=== PATIENT | female | born 1990 | race African-American/Black ===

== ENCOUNTER 2020-02-20 09:43 | Outpatient (CLI) | payer OTHER, SELFPAY ==
--- NOTE | ~2020-02-20 | US_ITS ---
EXAMINATION: US OB /maternal detail DATE: 02/20/2020 10:39 INDICATION: Second trimester anatomic survey TECHNIQUE: Real-time ultrasound of the pelvis was performed. COMPARISON: None. FINDINGS: There is a single living fetus in vertex presentation. The placenta is posterior and 4.2 cm from the internal cervical os. heart rate is 147 beats per minute (bpm). cardiac activity and fet al movement are noted. The amniotic fluid index is 11.0 which is normal. There is suboptimal evaluation of the spine due to positioning. The following anatomy was identified as normal: 4 chamber heart 3 vessel cord cord insertion kidneys urinary bladder stomach diaphragm ventricles cisterna magna cerebellum The following biometric data were obtained: Biparietal diameter (BPD): 4.81 cm; head circumference (HC): 7.8 cm; abdominal circumference (AC): 16 .6 cm; femur length (FL): 3.2 cm. These measurements are concordant. Estimated weight is 387 g +/- 58 g, which correlates with the <3rd percentile when 06/16/2020 is used as estimated date of delivery. As single measurements, these parameters are each equal to the following estimated gestational ages w ith ranges of +/- 2 standard deviations: BPD: 20 weeks 4 days +/- 1 weeks 5 days. HC: 20 weeks 2 days +/- 1 weeks 3 days. AC: 21 weeks 5 days +/- 2 weeks 0 days. FL: 20 weeks 2 days +/- 1 weeks 6 days. estimated gestational age based solely on measurements from this exam is 20 weeks 5 days +/- 1 weeks 3 days. IMPRESSION: 1. Single living fetus in vertex presentation. 2. Estimated weight is 387 g +/- 58 g, which correlates with the <3rd percentile when 06/16/2020 is used as estimated date of delivery. 3. Normal amniotic fluid index. 4. Suboptimal evaluation of the spine due to positioning. Reviewed, dictated and finalized at location A. [facility] UPHOLSTERY PARTS IMPRESSION: 1. Single living fetus in vertex presentation. 2. Estimated weight is 387 g +/- 58 g, which correlates with the <3rd per centile when 06/16/2020 is used as estimated date of delivery. 3. Normal amniotic fluid index. 4. Suboptimal evaluation of the spine due to positioning.
== END 2020-02-20 09:44 | disposition home or self-care (01) ==
PROVIDERS: Visit Provider Obstetrics & Gynecology
DX: Z34.92 Encounter for supervision of normal pregnancy, unspecified, second trimester (principal); Z3A.20 20 weeks gestation of pregnancy
CPT/HCPCS: 76805

== ENCOUNTER 2020-04-14 10:46 | Outpatient (CLI) | payer OTHER, SELFPAY ==
--- NOTE | ~2020-04-14 | US_ITS ---
EXAMINATION: US OB follow up EXAM DATE: 04/14/2020 11:22 INDICATION: Encounter for supervision of normal . 3rd trimester. TECHNIQUE: Pelvic obstetrical transabdominal sonogram was performed by a technologist. There are mu ltiple grayscale and Doppler images available for interpretation. Comparison is made to prior examina tion from 02/20/2020. FINDINGS: There is a single fetus identified in vertex presentation with a heart rate of 131 beats pe r minute. The placenta is located in the posterior position. There is no sonographic evidence of ret roplacental hemorrhage identified. The amniotic fluid index is 16.8 centimeters, which is normal. BIOMETRIC DATA: Biparietal diameter (BPD): 7.5cm ----------------> 30 weeks 1 day. Head circumference (HC): 26.0 cm ----------------> 28 weeks 2 days. Abdominal circumference (AC): 24.3 cm ----------> 28 weeks 4 days. Femur length (FL): 5.1 cm --------------------------> 27 weeks 2 days. These measurements are discordant, low FL/BPD ratio. HC/AC ratio is 1.07 (The 5th -- 95th percentile range is 1.00-1.21. Estimated weight is 1192 g +/- 179 g. This is the less than 3rd percentile when the currently reported clinical gestation age 31 weeks 0 days, clinical estimated date of delivery (PAT-OPE) 021 is used. estimated gestational age based on measurements from this exam is 28 weeks 4 days, with an estimated date of delivery (PAT-AUA) 07/03. IMPRESSION: 1. Single fetus in vertex presentation with heart rate 131 beats per minute. 2. Low weight of 1192 grams, less than 3rd percentile using the currently reported clinical ge station age of 31 weeks, PAT(OPE) 06/16. Low FL/BPD ratio. Reviewed, dictated and finalized at location A. EDWARDS CONSULTANT IMPRESSION: 1. Single fetus in vertex presentation with heart rate 131 beats per minute. 2. Low weight of 1192 grams, less than 3rd percentile using the currentl y reported clinical gestation age of 31 weeks, PAT(OPE) 3. Low FL/BPD ratio.
== END 2020-04-14 10:47 | disposition home or self-care (01) ==
PROVIDERS: PCP Physician Assistant; Visit Provider Physician Assistant
DX: Z34.90 Encounter for supervision of normal pregnancy, unspecified, unspecified trimester (principal); Z3A.00 Weeks of gestation of pregnancy not specified
CPT/HCPCS: 76816

== ENCOUNTER 2020-07-02 08:27 | Inpatient (IN) | payer OTHER, SELFPAY ==
[2020-07-02] VITALS (47 sets, daily range): BP systolic 98–130; BP diastolic 59–86; PULSE 66–125; RESP 12–18; TEMP 36.1–36.7; O2SAT 96–100; BMI 34.7
--- NOTE | 2020-07-02 07:09 | WPDHPUPDATE1 ---
History and Physical Update Update Date/Time: 07/02/20 07:09 History and Physical has been reviewed, including an updated exam of the patient. There are NO changes in the patient's condition. Risks, benefits, and alternatives have been discussed and questions answered. Patient agrees to proceed with procedure. 29 y/o F with h/o BV, candidiasis, TV, GBS, heterozygous MTHFR, HSV, deliveries who presents for 39w5d.repeat csection 07/02/20 under spinal anesthesia I explained her condition procedure and risks involved including risk of bleeding infection injury to bladder bowel baby pelvic vessels DVT pneumonia wound infections UTI and the risk of anesthesia she understands all this accepts and agrees to proceed
--- NOTE | 2020-07-02 07:21 | WPDOBADMIT ---
Obstetrics - Admit Note Admission Note: record reviewed. No pertinent additions to the history and/or any subsequent changes in the physical findings that are not consistent with the expected course of the were found. Additions to the history and/or subsequent changes in the physical findings follow. None. 30y/o F with h/o BV, candidiasis, TV, GBS, heterozygous MTHFR, HSV, deliveries who presents at 39w5d. she is undergoing a repeat low-transverse under spinal anesthesia on 07/02/20 I explained her condition procedure and risks involved she understands accepts and agrees to proceed. pump breast milk and use bottle. not sure on feeding, Dr Isabella Barbour for climbing guide ,no BC, boy name is Marbin Pérez. circumcision desired. repeat .
--- NOTE | 2020-07-02 07:27 | PM.IMHP ---
H&P: HPI History of Present Illness Date/Time: 07/02/20 07:27 30y/o F with h/o BV, candidiasis, TV, GBS, heterozygous MTHFR, HSV, deliveries who presents at 39w5d for.repeat csection 07/02/20 Chief Complaint: Term Repeat Review of Systems Review of Systems: All systems reviewed & are unremarkable except as noted in HPI and below Constitutional: Constitutional: Reports no additional constitutional complaints Eyes: Eyes: Reports no additional eye complaints ENT: Reports system reviewed and no additional complaints, except as documented Cardiovascular: Cardiovascular: Reports no additional cardiovascular complaints Respiratory: Respiratory: Reports no additional respiratory complaints Gastrointestinal: Gastrointestinal: Reports no additional gastrointestinal complaints Genitourinary: Genitourinary: Reports no additional female genitourinary complaints Musculoskeletal: Musculoskeletal: Reports no additional musculoskeletal complaints Integumentary/Breasts: Skin/Breast: Reports system reviewed and no additional complaints, except as docu Neurologic: Reports system reviewed and no additional complaints, except as documented Psychiatric: Psychiatric: Reports no additional psychiatric complaints Endocrine: Endocrine: Reports no additional endocrine complaints Hematologic/Lymphatic: Hematologic/Lymphatic: Reports no additional hematologic/lymphatic complaints Allergic/Immunologic: Allergic/Immunologic: Reports no additional allergic/immunologic complaints PMFSH Past Medical History Medical History (Updated 07/02/20 @ 07:46 by Boo Mondragon MD) BV (bacterial vaginosis) Candidiasis of vagina GBS (group B Streptococcus carrier), +RV culture, currently History of one miscarriage HSV (herpes simplex virus) infection Methylenetetrahydrofolate reductase (MTHFR) deficiency Term Trichomonas vaginalis (TV) infection UTI (urinary tract infection) Surgical History Surgical History (Updated 07/02/20 @ 07:37 by Boo Mondragon MD) Delivery by section 09/23/200914110 hrs.6 lbs.4 oz.FPrimary [facility] Family [facility] Family History (Updated 07/02/20 @ 07:40 by Boo Mondragon MD) Legal Guardian Breast cancer Ovarian cancer Social History Social History (Updated 07/02/20 @ 07:41 by Boo Mondragon MD) Smoking status: Never smoker Alcohol intake: never Substance use: never Gender identity (if verbalized by the patient): Female Sexual Orientation (if Verbalized by the Patient): Straight or Heterosexual Spiritual care concerns: No Agree to blood products: Yes Meds Home Medications and Allergies Home Medications Medication Instructions Recorded Confirmed Type PNV cmb#95-ferrous fumarate-FA 1 tablet PO DAILY 06/12/20 06/12/20 History [] aspirin 81 mg PO DAILY 06/12/20 06/12/20 History calcium carbonate [Oysco-500] 500 mg PO DAILY 06/12/20 06/12/20 History cyanocobalamin (vitamin B-12) See Rx Instructions .ROUTE .COMPLEX 06/12/20 06/12/20 History folic acid 1 mg PO DAILY 06/12/20 06/12/20 History progesterone micronized 200 mg PO BID 06/12/20 06/12/20 History valacyclovir [Valtrex] 800 mg PO DAILY 06/12/20 06/12/20 History Allergies Allergy/AdvReac Type Severity Reaction Status Date / Time No Known Allergies Allergy Verified 06/12/20 12:36 Exam Const: General: cooperative, healthy appearing, comfortable, no acute distress, well developed, alert, awake and Physically active Nutritional Appearance: average body habitus and well nourished Orientation/consciousness: patient oriented x3 Limitations: no limitations HENMT: Head: normal to inspection Eyes: General: appearance normal, both eyes and all related structures Neck: Neck: normal visual inspection and full ROM Chest: Chest palpation & inspection: normal inspection of the chest
--- NOTE | 2020-07-02 08:51 | LDADM ---
This patient, Augusto Pérez, was admitted to Labor/Delivery/Recovery 120 on 07/02/20 at 08:27. Plans for labor, pain management and were discussed with patient. Patient/family oriented to hospital policies and general routines including ID bracelet, bed and alarms, visiting hours, pain management, procedures, bathroom and other care routines, personal items, smoking policy, room service/diet and guest tray routines, infant security routines, call light,and visiting hours. Patient/Family are encouraged to report perceived risks to care and to ask questions if they do not understand what they are told or what they should do. See OBIX for further documentation.
[2020-07-02 09:25] LABS: Basophils Percent Auto 0.1 % (0.2-1.2); Eosinophils Percent Auto 0.6 % (0-4.4); Hematocrit 36.5 % (37.0-47.0); Hemoglobin 11.8 g/dL (12.0-15.0); Immature Granulocyte Absolute 0.02 K/mm3 (0.00-0.031); Immature Granulocyte Percent A 0.3 % (0-0.5); Lymphocytes Percent Auto 29.6 % (18.3-44.2); Mean Corpuscular HGB Conc 32.3 g/dl (32-36); Mean Corpuscular Hemoglobin 28.6 pg (26-34); Mean Corpuscular Volume 88.4 fl (80-100); Mean Platelet Volume 10.9 fl (7.4-10.4); Monocytes Absolute Auto 0.7 K/mm3 (0.1-0.6); Monocytes Percent Auto 10.1 % (2.6-8.5); Neutrophils Percent Auto 59.3 % (45.5-73.1); Platelet Count Result 244 k/mm3 (150-375); Red Blood Count 4.13 M/mm3 (4.2-5.4); Red Cell Distribution Width 13.1 % (11.5-14.5); White Blood Count 6.8 K/mm3 (4.5-10.0)
[2020-07-02] MEDS: LACTATED RINGERS 1,000 ML 125 ML IV CONT (09:25)
[2020-07-02] MEDS: ceFAZolin 2 GM/D5W 50 ML 2 GM/50 ML BAG IVPB (10:01)
[2020-07-02 10:15] LABS: HIV 1/2 Ab P24 Ag Result Negative (Negative)
--- NOTE | 2020-07-02 11:09 | P.PCNOB_ITS ---
OB - Delivery Note Procedure Procedure: Procedures Operation Date: 07/02/20 10:30 Repeat low-transverse section with delivery of viable male and placenta Intrapartal events: None Induction method: none Delivery monitor: external FHT and external uterine Route of delivery: ( repeat low-transverse) Episiotomy description: None Laceration Description: None Specimen: Yes ( placenta cord, cord gases, cord blood) Quantitative Blood Loss (ml): 200 Anesthesia type: Spinal ( Duramorph) Disposition: floor Complications: none [place] Baby Date of : 07/02/20 Time of : 10:32 Weeks of gestation at delivery: 39 Infant gender: Male (Yessenia) Weight (pounds): 7 Weight (ounces): 8 presentation: vertex position: Left Occiput Transverse Placenta delivery description: Manual Removal and Normal Configuration cord vessel description: 3 Vessels and Nuchal Cord score one minute: 9 score five minutes: 9 Narrative: normal transition normal exam taken to nursery in stable condition
--- NOTE | 2020-07-02 11:13 | PM.PROC ---
Procedure Note - Detailed Date of procedure: 07/02/20 Pre-op diagnosis: section term , prior desires repeat section, MTHFR, HSV, GBS Post-op diagnosis: same ( delivered viable male infant and placenta) Procedure performed: repeat low-transverse section with delivery of viable male and placenta Description of procedure: informed consent was obtained, the patient was taken to the operating room and placed on the operating table in upright position. Spinal anesthetic with Duramorph was administered the patient was then placed in the supine position and a Daugherty catheter was then inserted and the bladder and a abdominal prep was then performed. A time-out was performed and the abdomen was tested for adequate pain relief and was confirmed. Elliptical incision was made around the old scar and the old scar was excised using electrocautery for hemostasis. The fascia was entered with electrocautery and undermined inferiorly and then superiorly as well as laterally with electrocautery and the rectus muscles were then in the midline and the peritoneum was entered without difficulty and occult uterine dehiscence was identified and the membranes were easily ruptured with small pickups and clear fluid was obtained. The uterine incision was then extended bilaterally digitally. The amniotic fluid was clear and the vertex was then delivered via the abdominal incision with a nuchal cord x1 reduced upon delivery stimulation of the baby allowed for spontaneous respirations and cry and the cord was clamped and cut and the was handed to the nursery nurse in attendance. Normal transition with scores of 9 and 9 given baby born at 10:32 a.m. the weight 7 lb 8 oz taken to the nursery in stable condition. Cord gases were obtained and cord blood. The placenta was then delivered manually intact with a three-vessel cord and 10 units of Pitocin was given into the myometrium and it Pitocin was also given intravenously and the uterus contracted well with very minimal blood loss. Blood clots membranes removed from the intrauterine cavity with lap sponge. The uterus was externalized and then repaired the uterine incision with special emphasis on the dehisced area of the lower uterine segment with 0 Vicryl in a running interlocking fashion the 2nd being an imbricating and reinforcement stitch. Hemostasis was excellent blood clots removed the cul-de-sac with irrigation. The uterus was returned to the peritoneal cavity the sponge needle and instrument counts were correct the anterior peritoneum and rectus muscles were then reapproximated with 0 Vicryl suture in a running fashion the fascia was closed with 2. Quill S RS system bilaterally. Interrupted 2 0 plain suture was then used to reapproximate Vin's fascia. And the skin was closed with absorbable scotty INSORB. Dermaflex was placed on the skin of the scar and Mepilex dressing was placed over the incision. Patient was then taken to the recovery room stable condition the baby was taken to the nursery in stable condition. Implants: none Anesthesia: spinal ( Duramorph-- Angela Reynolds) Surgeon: Boo Mondragon MD Character Artist: surgical services coordinator x2 Estimated blood loss (mL): 200 IV fluids (mL): 900 Urine output (mL): 150 Drains: No Packing: No Pathology: yes ( cord gases, cord blood, placenta) Complications: None Condition: stable Disposition: floor Findings: normal uterus tubes and ovaries Occult uterine dehiscence with bulging bag of water at lower uterine segment Viable male infant Yessenia Apgars 9 and 9 weight 7 lb 8 oz born at 10:32 a.m. Spontaneous respirations and cry no observed abnormalities on the exam taken to the nursery in stable condition with normal transition Placenta delivered intact with a three-vessel cord Upper abdomen clean Incision uterus reinforced where occult uterine dehiscence Counts correct Compli
--- NOTE | 2020-07-02 11:26 | PM.OBDSVD ---
DS: Admitting Diagnosis Admitting Diagnosis Admitting Diagnosis: Term Previous desires repeat section MTHFR HSV GBS DS: Discharge Diagnosis Discharge Diagnosis (1) Term delivered: Code(s): O80 - Encounter for full-term uncomplicated delivery Status: Acute (2) Delivery by section: Status: Acute (3) GBS (group B Streptococcus carrier), +RV culture, currently : Code(s): O99.820 - Streptococcus B carrier state complicating Status: Acute (4) Methylenetetrahydrofolate reductase (MTHFR) deficiency: Code(s): E72.12 - Methylenetetrahydrofolate reductase deficiency Status: Acute OB - DS: Summary Hospital Course Time spent discussing smoking cessation with patient: 3 to 10 minutes OB Procedures : Ultrasound OB Procedures Intrapartum: ( repeat) low cervical, transverse and GBS prophylaxis OB Procedures: : Antibiotics Peripartum Data Infant Delivery Method: Section ( repeat low-transverse) Laceration Description: None Episiotomy description: None Procedures: Procedures Operation Date: 07/02/20 10:30 repeat low-transverse section with delivery of viable male and placenta complications: none 1: Gender: Male (Yessenia) Disposition of : home Status at Discharge Functional status at discharge: independent ambulation Overall status at discharge: patient is back to baseline Time Spent with Patient Time attestation: Total time spent providing and/or coordinating discharge services: Time spent: Less than 30 minutes Exam Const: General: cooperative, healthy appearing, comfortable, no acute distress, well developed, alert, awake and Physically active Nutritional Appearance: average body habitus and well nourished Orientation/consciousness: patient oriented x3 Limitations: no limitations HENMT: Head: normal to inspection Eyes: General: appearance normal, both eyes and all related structures Neck: Neck: normal visual inspection and full ROM Chest: Chest palpation & inspection: normal inspection of the chest Breast/axilla inspection: normal inspection of the breasts Resp: Effort & Inspection: normal respiratory effort Auscultation: clear to auscultation bilaterally Cardio: Rate: regular rate Rhythm: regular rhythm Heart sounds: S1 normal heart sound present and S2 normal heart sound present GI: Inspection: normal to inspection and incision ( dressing dry and intact) GI Palp: Yes Soft to palpation Percussion: Yes normal to percussion Auscultation: normal bowel sounds : External Female Exam: normal external appearance Back/Spine/Pelvis: Back: no CVA tenderness Skin: General skin exam: normal color Neuro: General: patient oriented x3, gait normal, tone normal, moves all extremities, Normal light touch and pain sensation, no meningeal signs, no focal motor deficits and CN's II-XI intact bilaterally Extrem: General: normal to inspection, full ROM, no calf tenderness and edema Psych: Appearance: grossly normal Mental Status: mental status grossly normal Speech and movement: Normal speech and movement present Affect: normal affect Attitude: cooperative Thought process: Normal thought process present Thought content: Yes Normal thought content present Insight: Good insight present (Psych) Judgement: Good judgement present (Psych) DS: Data Data Completed and Pending Labs on day of discharge: Labs from last 24 hours 07/02/20 07/02/20 07/02/20 09:12 09:12 09:12 WBC RBC Hgb Hct MCV MCH MCHC RDW Plt Count MPV Immature Gran % (Auto) Neut % (Auto) Lymph % (Auto) [place] % (Auto) Eos % (Auto) Baso % (Auto) Lymph # (Auto) [place] # (Auto) Eos # (Auto) Baso # (Auto) Abs Immat Gran (auto) Absolute Neuts (auto) Absolute Nucleated RBC Nucleat
[2020-07-02] MEDS: OXYTOCIN 30 UNITS/NS 500 ML 30 UNITS/500 ML BAG 125 UNITS IV CONT (11:54)
[2020-07-02] MEDS: diphenhydrAMINE HCl INJ 50 MG/ML VIAL 25 MG IV PUSH (11:56)
[2020-07-02] MEDS: KETOROLAC 30 MG/ML VIAL (*BKC) IV PUSH ×2 (11:59→17:43)
[2020-07-02 12:01] LABS: Rapid Plasma Reagin Non-Reactive (NonReactive)
--- NOTE | 2020-07-02 13:25 | PC.NURSE ---
Addendum entered by Alice Frey RN 07/02/20 15:15: Patient transferred to post room #278 via stretcher. Support person present. Oriented to unit, room, information board, rooming in, admission packet and security measures. Patient verbalizes understanding. Original Note: This patient, Augusto Pérez, was received from [facility] on 07/02/20 at 1325. Patient/family oriented to unit policies and routines
--- NOTE | 2020-07-02 15:30 | PC.NURSE ---
Consult with pt., mother states she wishes to pump and bottle feed. Mother states she will put infant to breast at times, but will supplement after. Breast pump provided due to mother's wishes. Instructions given on breast pump care and usage, pumping schedule, nipple care, and collection and storage of breast milk. Encouraged [id number], breast massage and manual expression to stimulate supply. Assessed patient for correct flange size 27mm, placement and draw. Patient verbalizes and demonstrates understanding of instructions.
[2020-07-02] MEDS: DEXTROSE 5%/0.45% SOD CHL 1,000 ML 125 ML IV CONT (16:28)
[2020-07-02] MEDS: LORATADINE 10 MG TABLET (16:36)
[2020-07-02] MEDS: diphenhydrAMINE HCl INJ 50 MG/ML VIAL 12.5 MG IV PUSH (22:45)
[2020-07-03] MEDS: IBUPROFEN 600 MG TABLET PO ×3 (04:15→22:00)
[2020-07-03] MEDS: HYDROcodone/acetaminophen (*CRX) 10-325 MG TABLET 1 TAB PO (04:20)
[2020-07-03 04:43] VITALS: BP 115/73; PULSE 93; PULSE 96; RESP 16; RESP 18; TEMP 36.5; O2SAT 100
[2020-07-03 06:38] LABS: Basophils Percent Auto 0.2 % (0.2-1.2); Eosinophils Percent Auto 0.2 % (0-4.4); Hematocrit 32.9 % (37.0-47.0); Hemoglobin 10.6 g/dL (12.0-15.0); Immature Granulocyte Absolute 0.04 K/mm3 (0.00-0.031); Immature Granulocyte Percent A 0.3 % (0-0.5); Lymphocytes Absolute Auto 1.43 K/mm3 (0.9-3.2); Lymphocytes Percent Auto 11.2 % (18.3-44.2); Mean Corpuscular HGB Conc 32.2 g/dl (32-36); Mean Corpuscular Hemoglobin 28.3 pg (26-34); Mean Corpuscular Volume 87.7 fl (80-100); Mean Platelet Volume 10.8 fl (7.4-10.4); Monocytes Percent Auto 7.9 % (2.6-8.5); Neutrophils Absolute Auto 10.2 K/mm3 (1.3-6.7); Neutrophils Percent Auto 80.2 % (45.5-73.1); Platelet Count Result 219 k/mm3 (150-375); Red Blood Count 3.75 M/mm3 (4.2-5.4); Red Cell Distribution Width 12.9 % (11.5-14.5); White Blood Count 12.8 K/mm3 (4.5-10.0)
[2020-07-03 08:00] VITALS: BP 122/69; PULSE 81; RESP 18; TEMP 36.6
--- NOTE | 2020-07-03 08:21 | WPDANLDPN2 ---
Anes-Prog Note L&D Date/Time: 07/03/20 08:21 Comfortable throughout: section Neuraxial method: spinal Epidural/Spinal procedure site: clean & non-tender Neuro status: Neuro function grossly intact. Cardiovascular status: normal Respiratory status: normal Airway patency: baseline Mental status: baseline Post-Op hydration status: normal Vital Signs: Last Vital Signs Temp 36.5 C 07/03/20 04:43 Pulse 96 07/03/20 04:43 Resp 18 07/03/20 04:43 BP 115/73 07/03/20 04:43 Pulse Ox 100 07/03/20 04:43 Pain score (VAS): 0/10. Patient resting in bed at time of assessment, appears comfortable. Support person at bedside. Patient has complaint of mild itching, no intervention at time of assessment. Discussed PRN medications, available to patient if needed. I/O: Intake & Output 07/02/20 07/03/20 07/03/20 23:59 07:59 15:59 Intake Total 480 1200 Output Total 125 1800 Balance 355 -600 Post-procedural complaints: pruritis mild, no treatment Patient feedback: Patient satisfied with anesthetic care.
--- NOTE | 2020-07-03 08:22 | WPDANLDNPN2 ---
Anes-Prog Note L&D-Neuraxial Date/Time: 07/03/20 08:22 Neuraxial medications: intrathecal PF morphine Opiod-related complaints: pruritis mild, no treatment Patient feedback: Patient satisfied with post-operative pain management.
[2020-07-03] MEDS: CALCIUM CARBONATE (OSCAL) 500 MG TABLET PO (08:54)
[2020-07-03] MEDS: HYDROcodone/acetaminophen (*CRX) 5-325 MG TABLET 1 TAB PO ×4 (08:55→22:00)
[2020-07-03] MEDS: SIMETHICONE 80 MG TAB.CHEW PO ×3 (08:55→17:18)
[2020-07-03] MEDS: ASPIRIN 81 MG ENTERIC TABLET PO (08:55)
[2020-07-03] MEDS: FOLIC ACID 1 MG TABLET PO (08:56)
[2020-07-03] MEDS: valACYclovir HCL 500 MG TABLET 800 MG PO (08:56)
[2020-07-03] MEDS: DOCUSATE SODIUM 100 MG CAPSULE PO ×2 (08:56→17:18)
--- NOTE | 2020-07-03 11:15 | P.DS_ITS ---
DS: Admitting Diagnosis Admitting Diagnosis Admitting Diagnosis: OB - DS: Summary OB Procedures : None OB Procedures Intrapartum: OB Procedures: : None Peripartum Data Procedures: Procedures Operation Date: 07/02/20 10:30 Actual Procedures Side Surgeon p Repeat Section Boo Mondragon MD Time Spent with Patient Time attestation: Total time spent providing and/or coordinating discharge services: DS: Data Data Completed and Pending Pending studies at discharge: Pending at discharge 07/02/20 12:21 Surgical [PTH] Routine Labs on day of discharge: Labs from last 24 hours 07/03/20 07/02/20 04:13 09:12 WBC 12.8 H RBC 3.75 L Hgb 10.6 L Hct 32.9 L MCV 87.7 MCH 28.3 MCHC 32.2 RDW 12.9 Plt Count 219 MPV 10.8 H Immature Gran % (Auto) 0.3 Neut % (Auto) 80.2 H Lymph % (Auto) 11.2 L [place] % (Auto) 7.9 Eos % (Auto) 0.2 Baso % (Auto) 0.2 Lymph # (Auto) 1.43 [place] # (Auto) 1.0 H Eos # (Auto) 0.0 Baso # (Auto) 0.0 Abs Immat Gran (auto) 0.04 H Absolute Neuts (auto) 10.2 H Absolute Nucleated RBC 0.0 Nucleated RBC % 0.0 RPR Non-reactive Discharge Plan Discharge Attending physician on discharge: Boo Mondragon Discharging Clinician: Boo Mondragon Anticipated Discharge Date/Time: 07/04/20 11:34 Patient Disposition: Home, Self-Care Activity: may shower, no straining, no driving and may drive after 2 weeks Diet: as tolerated and regular Wound Care Instructions: follow printed instructions Discharge Instructions: routine Patient Instructions: Antibiotic Form Stand Alone Forms: General Discharge Information Follow-up/Referrals: Boo Mondragon MD [Physician] - 3 Weeks Discharge Medications: New hydrocodone-acetaminophen 5-325 mg Tablet 1 tablet PO Q6H PRN (Reason: breakthrough pain) Qty: 28 RF: 0 polysaccharide iron complex 150 mg iron Capsule 150 mg PO BIDWM Qty: 120 RF: 3 ibuprofen 600 mg Tablet 600 mg PO Q6H Qty: 90 RF: 2 Continued valacyclovir [Valtrex] 500 mg Tablet 800 mg PO DAILY RF: 0 aspirin 81 mg Tablet,Delayed Release (Dr/Ec) 81 mg PO DAILY RF: 0 calcium carbonate [Oysco-500] 500 mg calcium (1,250 mg) Tablet 500 mg PO DAILY RF: 0 folic acid 1 mg Tablet 1 mg PO DAILY RF: 0 PNV cmb#95-ferrous fumarate-FA [] 28 mg iron- 800 mcg Tablet 1 tablet PO DAILY RF: 0 Discontinued progesterone micronized 200 mg Capsule 200 mg PO BID RF: 0 cyanocobalamin (vitamin B-12) 1,000 mcg/mL Syringe See Rx Instructions .ROUTE .COMPLEX RF: 0 Date of admission: 07/02/20 08:27 Primary Care Provider: PHYSICIAN,REFINED SYRUP OPERATOR Admitting Provider: Boo Mondragon Attending physician on admission: Boo Mondragon Condition: Stable
[2020-07-03 20:00] VITALS: BP 120/76; PULSE 77; RESP 18; TEMP 36.9; O2SAT 100
--- NOTE | 2020-07-03 20:23 | PC.NURSE ---
Pt & were escorted back to employee break room @ 191 due to code green, returned to room @ 1949 with no incident.
[2020-07-04] MEDS: IBUPROFEN 600 MG TABLET PO (05:15)
[2020-07-04] MEDS: SIMETHICONE 80 MG TAB.CHEW PO (05:15)
[2020-07-04] MEDS: HYDROcodone/acetaminophen (*CRX) 5-325 MG TABLET 1 TAB PO (05:15)
[2020-07-04] MEDS: DOCUSATE SODIUM 100 MG CAPSULE PO (07:29)
[2020-07-04] MEDS: ASPIRIN 81 MG ENTERIC TABLET PO (07:29)
[2020-07-04] MEDS: CALCIUM CARBONATE (OSCAL) 500 MG TABLET PO (07:29)
[2020-07-04] MEDS: valACYclovir HCL 500 MG TABLET 800 MG PO (07:30)
[2020-07-04] MEDS: FOLIC ACID 1 MG TABLET PO (07:31)
[2020-07-04] MEDS: TETANUS,DIPHTHERIA,AC PERTUSSIS ADULT (0.5 ML) BOOSTRIX IM (07:32)
[2020-07-04 07:35] VITALS: BP 116/70; PULSE 90; RESP 16; TEMP 36.9; O2SAT 96
[2020-07-05 12:52] VITALS: BP 141/68; PULSE 94; RESP 16; TEMP 36.8; O2SAT 96
--- NOTE | 2020-07-08 06:13 | PM.OBDSVD ---
DS: Admitting Diagnosis Admitting Diagnosis Admitting Diagnosis: OB - DS: Summary OB Procedures : None OB Procedures Intrapartum: OB Procedures: : None Peripartum Data Procedures: Procedures Operation Date: 07/02/20 10:30 Actual Procedures Side Surgeon p Repeat Section Boo Mondragon MD Time Spent with Patient Time attestation: Total time spent providing and/or coordinating discharge services: DS: Data Data Completed and Pending Pending studies at discharge: Pending at discharge 07/02/20 12:21 Surgical [PTH] Routine Discharge Plan Discharge Attending physician on discharge: Boo Mondragon Consulting providers: Suraj Shaffer Discharging Clinician: Boo Mondragon Anticipated Discharge Date/Time: 07/04/20 11:34 Patient Disposition: Home, Self-Care Activity: may shower, no straining, no driving and may drive after 2 weeks Diet: as tolerated and regular Wound Care Instructions: follow printed instructions Discharge Instructions: Education: Mom and Baby Guide Given to: Mother Follow-Up: Call your delivering provider's office for an appointment to be seen in: 3 weeks Mom and baby should come to the [facility] for the follow-up appointment. Appointment Date/Time: Sunday, July 05, 2020 at 12:00 pm Call [phone] if you are unable to keep your appointment time. BREAST CARE: * Wear a snug supportive bra. * For engorgement discomfort: Breast Feeding: * Apply warm moist washcloths * Express milk as needed to relieve engorgement * Wear loose clothing Bottle Feeding: * May apply ice packs * For sore nipples: * Identify correct latch-on * Apply warm moist washcloths before and after nursing * Air dry nipples after nursing * May apply Lansinoh cream to nipples ABDOMINAL INCISION: (if applicable) * Allow incision to air dry * Do NOT use lotions for powders on your incision * When showering, allow soap and water to run over the incision, but do not wash incision PERINEAL CARE: * Until bleeding stops, use your endy bottle after urinating * Change your pad frequently throughout the day * You may take sitz baths several times a day (fill your bathtub with warm water and soak for 20 minutes.) Do NOT bathe in the water * No tub baths until seen by your physician - You may shower ACTIVITY: * Rest as much as possible. * Do not exercise or lift anything heavier than your baby (such as laundry or other children.) * Avoid stairs or driving as much as possible. * Do not put anything into the vagina. No douching, tampons, or sexual activity until seen by physician. NOTIFY PHYSICIAN IF YOU HAVE ANY QUESTIONS OR IF ANY OF THE FOLLOWING SYMPTOMS OCCUR: * If your episiotomy or incision becomes red, swollen, or more painful than what you have experienced in the hospital. * If your vaginal bleeding becomes foul smelling. * If your vaginal bleeding becomes more heavy than a period or if your bleeding changes from pink to bright red. However, you may pass an occasional walnut-sized clot once or twice for the first week . * If you experience a sharp, shooting pain in you calves. * If you discover a hard, reddened area on your breast or if you experience flu-like symptoms. DIET: * Eat regular, well-balanced meals. * Drink plenty of fluids daily. If , drink to thirst. routine Follow-up/Referrals: Boo Mondraogn MD [Physician] - 3 Weeks Discharge Medications: New hydrocodone-acetaminophen 5-325 mg Tablet 1 tablet PO Q6H PRN (Reason: breakthrough pain) Qty: 28 RF: 0 ibuprofen 600 mg Tablet 600 mg PO Q6H Qty: 90 RF: 2 polysaccharide iron complex 150 mg iron Capsule 150 mg PO BIDWM Qty: 120 RF: 3 Continued valacyclovir [Valtrex] 500 mg Tablet 800 mg PO
== END 2020-07-04 12:40 | disposition home or self-care (01) | DRG 540 ==
LOC: ANHLDR 11:34 → ANHOB2 13:28
PROVIDERS: Admitting Provider Obstetrics & Gynecology; Visit Provider Obstetrics & Gynecology
PROC: 10D00Z1 Extraction of Products of Conception, Low, Open Approach (ICD-10-PCS; CPT 59514; principal; 2020-07-02 10:30)
DX: O34.211 Maternal care for low transverse scar from previous cesarean delivery (principal); Z37.0 Single live birth; Z3A.39 39 weeks gestation of pregnancy; O98.32 Other infections with a predominantly sexual mode of transmission complicating childbirth; B00.9 Herpesviral infection, unspecified; O99.284 Endocrine, nutritional and metabolic diseases complicating childbirth; E72.12 Methylenetetrahydrofolate reductase deficiency; O99.824 Streptococcus B carrier state complicating childbirth
CPT/HCPCS: 36415; 85025; 86592; 86703; 86850; 86900; 86901; 88307; 90715; A9270; G0432; J0131; J0690; J1200; J1885; J2274; J2370; J2405; J2590; J3010; J7120

== ENCOUNTER 2021-01-11 09:48 | Outpatient (CLI) | payer OTHER, SELFPAY ==
--- NOTE | 2021-01-11 12:00 | NEURO_ITS ---
Impression: # Complains of wrist pain. # No Carpal Tunnel Syndrome. # No ulnar neuropathy. # Normal needle/EMG exam. Nerve Conduction Studies Anti Sensory Summary Table Stim Site NR Peak (ms) P-T Amp (?V) Site1 Site2 Delta-P (ms) Dist (cm) Biju (m/s) Left Median Anti Sensory (2-3nd Digit) Wrist 2.7 72.5 Wrist 2-3nd Digit 2.7 14.0 52 Wrist 2.8 95.5 Wrist 2-3nd Digit 2.7 14.0 52 Right Median Anti Sensory (2-3nd Digit) Wrist 2.8 73.1 Wrist 2-3nd Digit 2.8 14.0 50 Wrist 2.8 85.3 Wrist 2-3nd Digit 2.8 14.0 50 Left Radial Anti Sensory (Base 1st Digit) Wrist 1.8 28.1 Wrist Base 1st Digit 1.8 0.0 Right Radial Anti Sensory (Base 1st Digit) Wrist 1.9 12.8 Wrist Base 1st Digit 1.9 0.0 Left Ulnar Anti Sensory (5th Digit) Wrist 2.6 57.4 Wrist 5th Digit 2.6 14.0 54 Right Ulnar Anti Sensory (5th Digit) Wrist 2.3 64.8 Wrist 5th Digit 2.3 14.0 61 Motor Summary Table Stim Site NR Onset (ms) O-P Amp (mV) Site1 Site2 Delta-0 (ms) Dist (cm) Biju (m/s) Left Median Motor (Abd Poll Brev) Wrist 2.6 10.8 Elbow Wrist 4.2 26.0 62 Elbow 6.8 9.0 Right Median Motor (Abd Poll Brev) Wrist 2.9 9.6 Elbow Wrist 4.3 26.0 60 Elbow 7.2 8.9 Left Ulnar Motor (Abd Dig Minimi) Wrist 2.5 8.3 A Elbow Wrist 4.6 27.0 59 A Elbow 7.1 7.6 Right Ulnar Motor (Abd Dig Minimi) Wrist 2.6 9.6 A Elbow Wrist 5.2 30.0 58 A Elbow 7.8 8.1 F Wave Studies NR F-Lat (ms) L-R F-Lat (ms) Left Median (Mrkrs) (Abd Poll Brev) 24.53 1.38 Right Median (Mrkrs) (Abd Poll Brev) 25.91 1.38 Left Ulnar (Mrkrs) (Abd Dig Min) 25.31 0.62 Right Ulnar (Mrkrs) (Abd Dig Min) 25.94 0.62 EMG Side Muscle Nerve Root Ins Act Fibs Amp Dur Recrt Comment Right 1stDorInt Ulnar C8-T1 Nml Nml Nml Nml Nml Right Ext Indicis Radial (Post Int) C7-8 Nml Nml Nml Nml Nml Right Ext Digitorum Radial (Post Int) C7-8 Nml Nml Nml Nml Nml Right BrachioRad Radial C5-6 Nml Nml Nml Nml Nml Right PronatorTeres Median C6-7 Nml Nml Nml Nml Nml Right Abd Poll Brev Median C8-T1 Nml Nml Nml Nml Nml Left 1stDorInt Ulnar C8-T1 Nml Nml Nml Nml Nml Left Ext Indicis Radial (Post Int) C7-8 Nml Nml Nml Nml Nml Left Ext Digitorum Radial (Post Int) C7-8 Nml Nml Nml Nml Nml Left BrachioRad Radial C5-6 Nml Nml Nml Nml Nml Left PronatorTeres Median C6-7 Nml Nml Nml Nml Nml Left Abd Poll Brev Median C8-T1 Nml Nml Nml Nml Nml MTDD
== END 2021-01-11 09:49 | disposition home or self-care (01) ==
PROVIDERS: PCP Internal Medicine Infectious Disease; Visit Provider Internal Medicine Infectious Disease
DX: G62.9 Polyneuropathy, unspecified (principal)
CPT/HCPCS: 95886; 95911

== ENCOUNTER 2025-01-17 15:25 | Emergency (ER) | payer OTHER, SELFPAY ==
[2025-01-17 15:38] VITALS: BP 125/80; PULSE 81; RESP 18; TEMP 36.8; O2SAT 100
[2025-01-17 16:15] LABS: EDUAAPPEAR Clear; EDUABILI Negative (Negative); EDUABLOOD Trace (Negative); EDUACOLOR1 Dark; EDUAGLUCOSE Negative (Negative); EDUAKETONE Negative (Negative); EDUALEUKO Negative (Negative); EDUANITRATE Negative (Negative); EDUAPH 5.5; EDUAPROTEIN Negative (Negative); EDUASPGRAVITY 1.030; EDUAUROBILI 0.2
--- NOTE | 2025-01-17 17:09 | ED.GENADULT ---
HPI - General Adult General Chief complaint: Urogenital-Female Stated complaint: std testing Source: patient Mode of arrival: ambulatory Limitations: no limitations History of Present Illness HPI narrative: Patient presents for evaluation of vaginal discharge for the last 3 weeks. She states that discharge is white in appearance with a fishy odor. She was last sexually active in September of this year. Sex partner at that time was male. He is asymptomatic. She denies any fever, chills, abdominal pain, low back pain. History of regular menstruation. Last menstrual period in the middle of last month. She is not on contraception. She is also concerned that she may have herpes. She states that her serum testing has always been negative but she has a prescription for daily Valtrex. She has not been taking it as directed. She currently has a painful sore to the vaginal area. Related Data Home Medications ?Medication ?Instructions ?Recorded ?Confirmed ?Last Taken ?Type valacyclovir 500 mg tablet 800 mg PO DAILY 06/12/20 01/17/25 Unknown History (Valtrex) Allergies Allergy/AdvReac Type Severity Reaction Status Date / Time No Known Allergies Allergy Verified 01/17/25 15:46 Review of Systems Review of Systems: CONSTITUTIONAL: Denies fever, chills, or sweats. EYES: Denies visual changes, redness, or discharge. ENT: Denies rhinorrhea, congestion, sore throat, or otalgia. CARDIOVASCULAR: Denies chest pain, palpitations, or edema. RESPIRATORY: Denies cough or dyspnea. GASTROINTESTINAL: Denies abdominal pain, nausea, vomiting, or diarrhea. GENITOURINARY: reports her white vaginal discharge with fishy odor. Denies vaginal bleeding. Denies urinary symptoms. SKIN: reports painful lesion to the vaginal area MUSCULOSKELETAL: Denies back pain, joint pain, or myalgia. NEUROLOGIC: Denies headache, numbness, dizziness, or weakness. PSYCHIATRIC: Denies anxiety or depression. [facility] Past Medical History Medical History History of one miscarriage Trichomonas vaginalis (TV) infection UTI (urinary tract infection) HSV (herpes simplex virus) infection Candidiasis of vagina BV (bacterial vaginosis) Term GBS (group B Streptococcus carrier), +RV culture, currently Methylenetetrahydrofolate reductase (MTHFR) deficiency Surgical History Surgical History Delivery by section 09/23/200914110 hrs.6 lbs.4 oz.FPrimary [facility] Family [facility] Family History Legal Guardian Breast cancer Ovarian cancer Social History Social History Smoking status: Never smoker Alcohol intake: never Substance use: never Gender identity (if verbalized by the patient): Female Sexual Orientation (if Verbalized by the Patient): Straight or Heterosexual Spiritual care concerns: No Agree to blood products: Yes Exam Narrative: GENERAL: Well-appearing, well-nourished, and in no acute distress. HEAD: Normocephalic, atraumatic. EYES: PERRLA and EOMI. ENT: Nares clear, no rhinorrhea or epistaxis. Mucous membranes moist. Oropharynx without tonsillar hypertrophy exudate or other lesions. Bilateral TMs pearly adame nonbulging NECK: Supple. No adenopathy or masses. No carotid bruits or JVD CHEST: Clear to auscultation. No respiratory distress. No wheezes rales or rhonchi HEART: Regular rate and rhythm. No murmur heard. Normal peripheral pulses. ABDOMEN: Soft, nontender, nondistended, normal active bowel sounds. EXTREMITIES: Normal range of motion. No edema. SKIN: There is a 3 mm ulcerative lesion to the left labia NEURO: No focal deficits. Alert and oriented x3. PSYCH: Normal mood and affect. Course Course Emergency Course: This is a 34-year-old female who presented for evaluation of vaginal discharge. Her description of the discharge seems consistent with bacterial vaginosis. She declined pelvic exam. She was able to collect self swabs. Will discharge with Flagyl. We performed a viral culture swab of vaginal lesion to check for herpes. She should follow-up with her OBGYN and primary care provider. Go to the ER for worsening symptoms. Patient in agreement with plan of care. Level of Care: Express Care Visit Vital Signs Vital signs: Vital Signs Temperature 36.8 C 01/17/25 15:38 Pulse Rate 81 10/11/25 15:38 Respiratory Rate 18 01/17/25 15:38 Blood Pressure 125/80 01/17/25 15:38 Pulse Oximetry 100 01/17/25 15:38 Oxygen Delivery Room Air 01/17/25 15:38 Temperature 36.8 C 01/17/25 15:38 Pulse Rate 81 01/17/25 15:38 Respiratory Rate 18 01/17/25 15:38 Blood Pressure 125/80 01/17/25 15:38 Pulse Oximetry 100 01/17/25 15:38 Oxygen Delivery Room Air 01/17/25 15:38 Medical Decision Making Vital Signs Vital Signs: Vital Signs Temperature 36.8 C 01/17/25 15:38 Pulse Rate 81 01/17/25 15:38 Respiratory Rate 18 01/17/25 15:38 Blood Pressure 125/80 01/17/25 15:38 Pulse Oximetry 100 01/17/25 15:38 Oxygen Delivery Room Air 01/17/25 15:38 Temperature 36.8 C 01/17/25 15:38 Pulse Rate 81 01/17/25 15:38 Respiratory Rate 18 01/17/25 15:38 Blood Pressure 125/80 01/17/25 15:38 Pulse Oximetry 100 01/17/25 15:38 Oxygen Delivery Room Air 01/17/25 15:38 Lab Data Labs: Lab Results 01/17/25 01/17/25 Range/Units 16:12 17:00 POC Urine Color Dark POC Urine Clarity Clear POC Urine pH 5.5 POC Ur Specif [place] 1.030 POC Urine Protein Negative (Negative) POC Ur Glucose (UA) Negative (Negative) POC Urine Ketones Negative (Negative) POC Urine Blood Trace (Negative) POC Urine Nitrite Negative (Negative) POC Urine Bilirubin Negative (Negative) POC Urine Urobilinogen 0.2 POC U Leukocyte Esteras Negative (Negative) HSV I DNA PCR Pending HSV II DNA PCR Pending Discharge Plan Discharge Clinical Impression: Bacterial vaginosis Patient Disposition: Home Condition: Stable Instructions: Antibiotic Form, Bacterial Vaginosis (ED) Patient Language: Mal[place]ian Prescriptions: New metronidazole 500 mg tablet 500 mg PO BID 7 Days Qty: 14 0RF fluconazole 150 mg tablet 150 mg PO ONCE Qty: 1 0RF Rx Instructions: as a single dose at completion of flagyl if you experience vaginal itching or thick clumpy discharge No Action valacyclovir [Valtrex] 500 mg Tablet 800 mg PO DAILY Follow-up/Referrals: Eladio,Peggy Islas [Primary Care Provider] Time of Disposition: 17:08
[2025-01-17 20:18] LABS: Trichomonas Vag PCR NOT DETECTED (NOT DETECTE)
[2025-01-20 22:08] LABS: HSV-1 DNA Negative (Negative); HSV-2 DNA Positive (Negative)
== END 2025-01-17 17:15 | disposition home or self-care (01) ==
PROVIDERS: Emergency Provider Nurse Practitioner; PCP Internal Medicine Infectious Disease
DX: N76.0 Acute vaginitis (principal); Z11.3 Encounter for screening for infections with a predominantly sexual mode of transmission; E72.12 Methylenetetrahydrofolate reductase deficiency
CPT/HCPCS: 81003; 86615; 87491; 87529; 87591; 87661; 87798; 99213; G0463